=== PATIENT | male | born 2000 | race Caucasian/White ===

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

== ENCOUNTER 2023-06-15 15:33 | Emergency (ER) | payer OTHER ==
[~2023-06-15] VITALS: Ht 182.9 cm; Wt 61.2 kg
[2023-06-15 15:33] VITALS: BP_SYST 118; PULSE 73; RESP 18; TEMP 98.2; O2SAT 96
[2023-06-15 17:50] VITALS: BP_SYST 115; PULSE 70; RESP 18; TEMP 98.2; O2SAT 98
== END 2023-06-15 17:50 | disposition home or self-care (01) ==
LOC: SED 15:33
DX: S41.112A Laceration without foreign body of left upper arm, initial encounter (principal); Z79.899 Other long term (current) drug therapy; W20.8XXA Other cause of strike by thrown, projected or falling object, initial encounter; Y93.89 Activity, other specified; Y92.89 Other specified places as the place of occurrence of the external cause; Y99.8 Other external cause status
CPT/HCPCS: 99282